=== PATIENT | female | born 1985 | race Caucasian/White ===

== ENCOUNTER 2020-01-10 12:11 | Outpatient (REF) | payer OTHER, SELFPAY | END 2020-01-10 12:12 | disposition home or self-care (01) | LOC: HO.LAB 12:11 | PROVIDERS: PCP Internal Medicine; Visit Provider Internal Medicine | DX: Z20.828 Contact with and (suspected) exposure to other viral communicable diseases (principal) | CPT/HCPCS: C9803; U0003 ==

== ENCOUNTER 2020-02-03 07:56 | Outpatient (REF) | payer OTHER, SELFPAY | END 2020-02-03 07:57 | disposition home or self-care (01) | LOC: HO.LAB 07:56 | PROVIDERS: Visit Provider Internal Medicine | DX: Z20.828 Contact with and (suspected) exposure to other viral communicable diseases (principal) | CPT/HCPCS: C9803; U0003 ==

== ENCOUNTER 2020-02-12 13:00 | Outpatient (RCR) | payer OTHER, SELFPAY | END 2020-11-03 08:14 | disposition home or self-care (01) | LOC: HO.PT 13:00 | PROVIDERS: PCP Internal Medicine; Visit Provider Physician Assistant | DX: M54.5 Low back pain (principal) | CPT/HCPCS: 97110; 97112; 97116; 97140; 97161 ==

== ENCOUNTER 2020-02-17 08:24 | Outpatient (REF) | payer OTHER, SELFPAY | END 2020-02-17 08:25 | disposition home or self-care (01) | LOC: HO.LAB 08:24 | PROVIDERS: PCP Internal Medicine; Visit Provider Internal Medicine | DX: Z20.828 Contact with and (suspected) exposure to other viral communicable diseases (principal) | CPT/HCPCS: C9803; U0003 ==

== ENCOUNTER → 2020-03-10 11:21 | Outpatient (BNVA) | payer OTHER, SELFPAY | PROVIDERS: PCP Internal Medicine; Visit Provider Advanced Practice Midwife | DX: Z76.89 Persons encountering health services in other specified circumstances (principal) ==

== ENCOUNTER 2020-04-02 07:39 | Outpatient (REF) | payer OTHER, SELFPAY | END 2020-04-02 07:40 | disposition home or self-care (01) | LOC: HO.LAB 07:39 | PROVIDERS: Visit Provider Internal Medicine | DX: Z20.822 Contact with and (suspected) exposure to COVID-19 (principal) | CPT/HCPCS: 36415; C9803; U0003; U0005 ==

== ENCOUNTER 2020-05-22 14:22 | Emergency (ER) | payer OTHER, SELFPAY ==
--- NOTE | ~2020-05-22 | XR_ITS ---
EXAMINATION: XR ANKLE, RIGHT XR FOOT, RIGHT CLINICAL INFORMATION: Trauma, pain COMPARISON: Right ankle radiographs 11/23/2017 TECHNIQUE: 2 views right ankle, 2 views right foot, and a lateral view of the combined right ankle and foot are obtained for a total of 5 views. FINDINGS: The malleoli are intact and the ankle mortise is symmetric. There is no fracture or dislocation or visible ankle capsular effusion. The retrocalcaneal recess is preserved. The subtalar joint appears normal. The midfoot and forefoot show no fracture or dislocation or arthropathy. XR/XR foot RT 2V IMPRESSION: No fracture or dislocation.
--- NOTE | ~2020-05-22 | XR_ITS ---
EXAMINATION: XR ANKLE, RIGHT XR FOOT, RIGHT CLINICAL INFORMATION: Trauma, pain COMPARISON: Right ankle radiographs 11/23/2017 TECHNIQUE: 2 views right ankle, 2 views right foot, and a lateral view of the combined right ankle and foot are obtained for a total of 5 views. FINDINGS: The malleoli are intact and the ankle mortise is symmetric. There is no fracture or dislocation or visible ankle capsular effusion. The retrocalcaneal recess is preserved. The subtalar joint appears normal. The midfoot and forefoot show no fracture or dislocation or arthropathy. XR/XR ankle RT 2V IMPRESSION: No fracture or dislocation.
[2020-05-22 15:00] VITALS: BP 114/66; PULSE 75; RESP 18; TEMP 36.7; O2SAT 99; BMI 37.5
[2020-05-22 16:00] VITALS: BP 118/70; PULSE 70; RESP 20; TEMP 36.4; O2SAT 98
--- NOTE | 2020-05-22 16:09 | ED.LOWEXIN ---
HPI - Extremity Injury (Lower) General Chief Complaint: Extremity Injury, Lower Stated Complaint: rt ankle injury Time Seen by Provider: 05/22/20 16:09 Source: patient Mode of arrival: ambulatory History of Present Illness HPI Narrative: 34-year-old female with a past medical history of dysmenorrhea, presenting to the ED complaining of right ankle/foot pain s/p twisting injury this afternoon while at work. Reports was moving chairs when twisted ankle, now with notable swelling and pain with walking/movement. Denies head trauma or LOC. Denies numbness, tingling, weakness, or injury to other area MD complaint: ankle injury and foot injury Related Data Home Medications Medication Instructions Recorded Confirmed 103-folic acid 400 1 tab PO DAILY 12/04/19 03/10/20 mcg-omeg3 32.5 mg-dha-fish oil chew tablet Previous Rx's Medication Instructions Recorded ibuprofen 600 mg tablet 600 mg PO Q6H PRN #60 tab 12/04/19 valacyclovir 500 mg tablet 500 mg PO BID #30 tab 12/04/19 norethindrone (contraceptive) 0.35 0.35 mg PO DAILY #28 tab 03/10/20 mg tablet acetaminophen [Tylenol Extra 500 mg PO Q6H PRN #20 tab 05/22/20 Strength] naproxen 500 mg PO BID PRN 10 Days #20 tab 05/22/20 Allergies Allergy/AdvReac Type Severity Reaction Status Date / Time No Known Allergies Allergy Mild NOT Verified 03/10/20 11:22 APPLICABLE Review of Systems Review of Systems: Constitutional: No Fever, No Chills Musculoskeletal: + joint pain, No Myalgias, +Joint Swelling Skin: No Skin Lesions, No rash Neuro: No Weakness, No Numbness, No Paresthesias, no head trauma or LOC Yes all other systems are reviewed and are negative PMFSH Past Medical History Attestation statement: The following information was validated with the patient. Medical History Dysmenorrhea History of depression Hx of herpes simplex infection Hx of thyroid nodule Tobacco use Family History Family History Father History of colon cancer Mother Hx of diabetes mellitus Hx of cardiovascular disorder Hx of sleep apnea Brother Hx of diabetes mellitus Hx of sleep apnea Maternal Grandmother Hx of diabetes mellitus Social History Social History Alcohol intake: current Alcohol intake frequency: a few times a month Smoking Status: Current every day smoker Tobacco Type: Cigarette Cigarettes Per Day: 2 Advance Directives: No Advance Directives Information Provided: Yes Physical Exam Vital Signs: Vital Signs: Last Vital Signs Temp 97.6 F 05/22/20 16:00 Pulse 70 05/22/20 16:00 Resp 20 05/22/20 16:00 BP 118/70 05/22/20 16:00 Pulse Ox 98 05/22/20 16:00 Body Mass Index 37.5 Const: General: cooperative, healthy appearing and no acute distress Orientation/consciousness: patient oriented x3 Limitations: no limitations HENMT: Head: Yes normal to inspection Ears: hearing grossly normal bilaterally General nose exam: Normal external nose present Face and sinus: Yes normal facial exam Eyes: General: appearance normal, both eyes and all related structures EOM: EOMs intact bilaterally Neck: Neck: Yes normal visual inspection and Yes no meningeal signs Resp: Effort & Inspection: normal respiratory effort Cardio: Peripheral pulses: dorsalis pedis present Skin: Rashes: no rashes Wounds: no wounds Neuro: General: patient oriented x3, tone normal and no meningeal signs Extrem: Other: Right ankle notable swelling and tenderness to palpation. Decreased ROM secondary to pain. Right foot with mild swelling and tenderness to palpation. Neurovascularly intact. Range of motion intact to toes. Course Course Course Narrative: -right foot/ankle x-rays without fracture or dislocations>> patient placed in Aircast to follow-up with PCP MDM - Extremity Injury (Lower) MDM Narrative Medical decision making narrative: Concern for sprain/strain vs fracture Plan: X-rays Discharge Plan Discharge Clinical Impression: Ankle sprain Qualifiers: Encounter type: initial encounter Involved ligament of ankle: unspecified ligament Laterality: right Qualified Code(s): S93.401A - Sprain of unspecified ligament of right ankle, initial encounter Patient Disposition: Home, Self-Care Instructions: Ankle Sprain (ED) Additional Instructions: Your x-rays did not show any acute fracture/dislocation. Wear Aircast at home as needed for stability/comfort Ice, elevate, rest, stay off her feet as much as possible, bear weight as tolerated Follow-up with her primary care doctor Prescriptions: New acetaminophen [Tylenol Extra Strength] 500 mg tablet 500 mg PO Q6H PRN (Reason: pain or fever) Qty: 20 RF: 0 naproxen 500 mg tablet 500 mg PO BID PRN (Reason: pain) 10 Days Qty: 20 RF: 0 No Action with DHA-Folic Acid 400-32.5 mcg-mg tablet,chewable 1 tab PO DAILY RF: 0 valacyclovir [Valtrex] 500 mg tablet 500 mg PO BID Qty: 30 RF: 1 ibuprofen 600 mg tablet 600 mg PO Q6H PRN (Reason: pain) Qty: 60 RF: 1 norethindrone (contraceptive) 0.35 mg tablet 0.35 mg PO DAILY Qty: 28 RF: 9 Referrals: Physician,Unknown [Primary Care Provider] - 1 week
== END 2020-05-22 16:20 | disposition home or self-care (01) ==
PROVIDERS: Emergency Provider Emergency Medicine Emergency Medical Services
DX: S93.401A Sprain of unspecified ligament of right ankle, initial encounter (principal); M25.571 Pain in right ankle and joints of right foot; X50.1XXA Overexertion from prolonged static or awkward postures, initial encounter; Y93.01 Activity, walking, marching and hiking; Y92.9 Unspecified place or not applicable; Y99.0 Civilian activity done for income or pay; F17.210 Nicotine dependence, cigarettes, uncomplicated; Z71.6 Tobacco abuse counseling; Z79.899 Other long term (current) drug therapy
CPT/HCPCS: 73600; 73620; 99283

== ENCOUNTER 2021-01-18 15:14 | Outpatient (REF) | payer OTHER, SELFPAY ==
[2021-01-19 05:32] LABS: CT PCR NOT DETECTED (Not Detect.); NG PCR NOT DETECTED (Not Detect.)
== END 2021-01-18 15:15 | disposition home or self-care (01) ==
LOC: HO.LAB 15:14
PROVIDERS: Visit Provider Advanced Practice Midwife
DX: Z01.419 Encounter for gynecological examination (general) (routine) without abnormal findings (principal); Z20.2 Contact with and (suspected) exposure to infections with a predominantly sexual mode of transmission; F17.210 Nicotine dependence, cigarettes, uncomplicated
CPT/HCPCS: 87491; 87591

== ENCOUNTER → 2021-02-03 15:06 | Outpatient (BNVA) | payer OTHER, SELFPAY | PROVIDERS: Visit Provider Advanced Practice Midwife | DX: Z30.430 Encounter for insertion of intrauterine contraceptive device (principal) | CPT/HCPCS: 58300; 81025 ==

== ENCOUNTER → 2021-03-15 13:42 | Outpatient (BNVA) | payer OTHER, SELFPAY | PROVIDERS: Visit Provider Advanced Practice Midwife | DX: Z30.431 Encounter for routine checking of intrauterine contraceptive device (principal) | CPT/HCPCS: 99212 ==

== ENCOUNTER 2022-06-24 13:43 | Outpatient (REF) | payer OTHER, MEDICAID, SELFPAY ==
[2022-06-30 07:24] LABS: HPV mRNA E6/E7 rflx Not Detected (Not Detected)
== END 2022-06-24 13:44 | disposition home or self-care (01) ==
LOC: HO.LNP 13:43
PROVIDERS: Visit Provider Advanced Practice Midwife
DX: Z01.411 Encounter for gynecological examination (general) (routine) with abnormal findings (principal); R10.2 Pelvic and perineal pain; B00.9 Herpesviral infection, unspecified; Z80.3 Family history of malignant neoplasm of breast
CPT/HCPCS: 87624; 88142

== ENCOUNTER 2022-08-01 15:31 | Outpatient (REF) | payer OTHER, MEDICAID, SELFPAY ==
--- NOTE | ~2022-08-01 | MM_ITS ---
EXAMINATION: MM SCREENING DIGITAL BREAST TOMOSYNTHESIS, BILATERAL CLINICAL INFORMATION: Screening. Asymptomatic. No prior mammography. Age 36. Family history breast cancer, mother. The lifetime risk of breast cancer based on the Tyrer-Cuzick Model is 16%. COMPARISON: None (current study represents initial baseline exam). TECHNIQUE: Digital breast tomosynthesis is performed in both the craniocaudal and mediolateral oblique views along with computer-aided detection (CAD). Synthesized 2D images are generated from the tomosynthesis. FINDINGS: There are scattered areas of fibroglandular density (ACR BI-RADS breast composition Category b). There are no significant masses, abnormal calcifications, or other abnormalities. No architectural abnormality. The axilla and skin contours are unremarkable. MM/MM tomosynthesis screening BI IMPRESSION: No mammographic evidence of malignancy. ASSESSMENT: BI-RADS 1: Negative RECOMMENDATION: Routine annual mammography screening, by age 40, or earlier as clinical risk factors warrant. This patient's information was entered into a reminder system with a target due date for their next mammogram.
== END 2022-08-01 15:32 | disposition home or self-care (01) ==
LOC: HO.MAMMO 15:31
PROVIDERS: Visit Provider Advanced Practice Midwife
DX: Z12.31 Encounter for screening mammogram for malignant neoplasm of breast (principal); Z80.3 Family history of malignant neoplasm of breast
CPT/HCPCS: 77063; 77067

== ENCOUNTER 2023-06-30 14:18 | Outpatient (AMB) | payer OTHER, MEDICAID, SELFPAY ==
--- NOTE | 2023-06-30 14:36 | MHC.OFFVIS ---
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 Doing well with no concerns. She tries to eat healthy and stays active with exercise. No regular bleeding with her Mirena IUD. Currently is sexually active, same monogamous partner. She denies vaginal itching and irritation. STI screening offered; she declines. Denies family history of ovarian or colon cancer. FH breast cancer-mom age 60 at onset diagnoses. Last pap smear 2022, negative. [facility] Medical History Tobacco use Dysmenorrhea History of depression Hx of herpes simplex infection Hx of thyroid nodule Family History Father History of colon cancer Mother Hx of diabetes mellitus Hx of cardiovascular disorder Hx of sleep apnea Breast cancer, Onset Age: 60 Kidney transplant status Brother Hx of diabetes mellitus Hx of sleep apnea Maternal Grandmother Hx of diabetes mellitus Social History Household Members: Spouse Household Members Other:: lives wtih spouse and her 2 children Alcohol intake: current Alcohol intake frequency: a few times a month Patient Tobacco Use Status: Former Tobacco user Cigarettes Per Day: 0 Current occupational status: employed 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 Reproductive History Menstrual Age of Menarche: 14 Duration of menses: 3-5 days control method: progestin IUCD Total pregnancies: 5 Full term: 2 Number of Living Children: 2 Ab spontaneous: 3 Date of last pap smear: 06/24/22 (negative) History of abnormal pap smear: Yes (2004 LG) Date of Mammogram: 08/01/22 Review of Systems Const All systems reviewed & are unremarkable except as noted in HPI and below Reports as per HPI Eyes Reports no additional complaints ENT Reports no additional complaints Card Reports no additional complaints Resp Reports no additional complaints GI Reports as per HPI and Reports no additional complaints Reports as per HPI Musc Reports no additional complaints Skin/Breast Reports as per HPI Neuro Reports no additional complaints Psych Reports no additional complaints Endo Reports no additional complaints Axel/Lymph Reports no additional complaints Aller/Immun Reports no additional complaints Physical Exam Vital Signs: Last Vital Signs BP 112/68 06/30/23 14:37 BMI result Body Mass Index 37.0 Const General: cooperative, healthy appearing, no acute distress, well developed and alert Orientation/consciousness: patient oriented x3 HEENT Head: Yes normal to inspection Eyes General: appearance normal, both eyes and all related structures Neck Neck: Yes normal visual inspection Thyroid: Thyroid normal Chest Chest palpation & inspection: normal inspection of the chest and other (no puckering, dimpling, peau de orange, retraction, discharge, masses) Breast/axilla inspection: normal inspection of the breasts Breast/axilla palpation: normal palpation of the breasts Resp Effort & Inspection: normal respiratory effort GI Inspection: Yes normal to inspection Palpation (GI): Soft to palpation Rectal Exam - Female: deferred General: Yes bladder normal to palpation External Female Exam: normal external appearance and normal appearance of the urethra Speculum Exam - Vagina: normal appearance of the vagina, normal palpation and normal vaginal discharge Speculum Exam - Cervix: normal appearance of the cervix, normal palpation and Other cervical findings present (IUD strings present at the os) Bimanual exam- vagina & uterus: normal bimanual exam, normal palpation, uterine size normal, bladder normal to palpation, normal palpation and non-tender Bimanual Exam- Adnexa, other: no masses Skin General skin exam: no rashes or lesions noted Rashes: no rashes Neuro General: patient oriented x3 Cognition (Neuro): normal cognition Extrem General: Yes normal to inspection Psych Attitude: cooperative Thought process: Normal thought process present Assessment & Plan Assessment & Plan (1) Encounter for well woman exam with routine gynecological exam: Code(s): Z01.419 - Encounter for gynecological examination (general) (routine) without abnormal findings Plan Discussed: Current recommendations for pap smears per ASCCP guidelines. Breast awareness and periodic breast exams. Maintain a healthy lifestyle including a well balanced diet and routine exercise. Patient verbalizes understanding and agrees to the plan of care. She was given opportunity to ask questions and all questions were answered to the best of my ability. RTO in one year for annual physical ther examination. This note is constructed using voice recognition software. While every effort has been made to ensure accuracy, stock preparation operator errors may have been included. Coding Level of Care Code Est Pt Prev Care 18-39y(73672) Diagnoses Encounter for well woman exam with routine gynecological exam Z01.419
[2023-06-30 14:37] VITALS: BP 112/68; BMI 37.0
== END 2023-06-30 15:02 | disposition home or self-care (01) ==
PROVIDERS: Visit Provider Advanced Practice Midwife
DX: Z01.419 Encounter for gynecological examination (general) (routine) without abnormal findings (principal)
CPT/HCPCS: 99395

== ENCOUNTER → 2023-06-30 14:18 | Outpatient (BNVA) | payer OTHER, MEDICAID, SELFPAY | PROVIDERS: Visit Provider Advanced Practice Midwife ==

== ENCOUNTER 2024-07-09 14:16 | Outpatient (AMB) | payer OTHER, MEDICAID, SELFPAY ==
--- NOTE | 2024-07-09 14:22 | MHC.OFFVIS ---
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 Doing well with warranty coordinator concerns: right lower pelvic pain, intermittently x a few months. History of constipation. Currently is sexually active. She denies vaginal itching or irritation. She tries to eat healthy, loose weight w/dieting, and stays active with exercise. Denies family history of ovarian cancer. Family history of breast cancer-mother age 60. FH colon cancer-father. Last pap smear 2022, negative. [facility] Medical History (Updated 07/09/24 @ 14:59 by Areli Kahn CNM) IUD (intrauterine device) in place Pelvic pain Tobacco use Dysmenorrhea History of depression Hx of herpes simplex infection Hx of thyroid nodule Family History Father History of colon cancer Mother Hx of diabetes mellitus Hx of cardiovascular disorder Hx of sleep apnea Breast cancer, Onset Age: 60 Kidney transplant status Brother Hx of diabetes mellitus Hx of sleep apnea Maternal Grandmother Hx of diabetes mellitus Social History (Updated 07/09/24 @ 14:33 by SHAHLA Kumar) Household Members: Spouse Household Members Other:: lives wtih spouse and her 2 children Alcohol intake: former Patient Tobacco Use Status: Former Tobacco user Cigarettes Per Day: 0 Current occupational status: employed 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 Reproductive History Menstrual Age of Menarche: 14 control method: progestin IUCD (Mirena 02/03/21) Total pregnancies: 5 Full term: 2 Number of Living Children: 2 Ab spontaneous: 3 Date of last pap smear: 06/24/22 (neg pap and hpv) History of abnormal pap smear: Yes (2004 lg) Review of Systems Const All systems reviewed & are unremarkable except as noted in HPI and below Reports as per HPI Eyes Reports no additional complaints ENT Reports no additional complaints Card Reports no additional complaints Resp Reports no additional complaints GI Reports as per HPI and Reports no additional complaints Reports as per HPI Musc Reports no additional complaints Skin/Breast Reports as per HPI Neuro Reports no additional complaints Psych Reports no additional complaints Endo Reports no additional complaints Axel/Lymph Reports no additional complaints Aller/Immun Reports no additional complaints Physical Exam Vital Signs: Last Vital Signs BP 112/70 07/09/24 14:24 BMI result Body Mass Index 38.4 Const General: cooperative, healthy appearing, no acute distress, well developed and alert Orientation/consciousness: patient oriented x3 HEENT Head: Yes normal to inspection Eyes General: appearance normal, both eyes and all related structures Neck Neck: Yes normal visual inspection Thyroid: Thyroid normal Chest Chest palpation & inspection: normal inspection of the chest and other (no puckering, dimpling, peau de orange, retraction, discharge, masses) Breast/axilla inspection: normal inspection of the breasts Breast/axilla palpation: normal palpation of the breasts Resp Effort & Inspection: normal respiratory effort GI Inspection: Yes normal to inspection Palpation (GI): Soft to palpation Rectal Exam - Female: deferred General: Yes bladder normal to palpation External Female Exam: normal external appearance and normal appearance of the urethra Speculum Exam - Vagina: normal appearance of the vagina, normal palpation and normal vaginal discharge Speculum Exam - Cervix: normal appearance of the cervix, normal palpation and Other cervical findings present (IUD strings at the os) Bimanual exam- vagina & uterus: normal bimanual exam, normal palpation, uterine size normal, bladder normal to palpation, normal palpation and non-tender Bimanual Exam- Adnexa, other: no masses and tender (slightly) on the right Skin General skin exam: no rashes or lesions noted Rashes: no rashes Neuro General: patient oriented x3 Cognition (Neuro): normal cognition Extrem General: Yes normal to inspection Psych Attitude: cooperative Thought process: Normal thought process present Results AMB Urinalysis, Automated UA Leukoctes 2 Yuniel/uL Last Edit by SHAHLA Kumar on 07/09/24 14:39 UA Nitrite Negative Last Edit by SHAHLA Kumar on 07/09/24 14:39 UA Urobilinogen 0 mg/dL Last Edit by SHAHLA Kumar on 07/09/24 14:39 UA Protein 0.5 mg/dL Last Edit by SHAHLA Kumar on 07/09/24 14:39 UA pH 7.0 Last Edit by Valentine Aviva Matos Smita on 07/09/24 14:39 UA Blood 0 Kash/uL Last Edit by Valentine Chicas Shawna Smita on 07/09/24 14:39 UA Specific [place] 1.015 Last Edit by Valentine Aviva Matos [facility] on 07/09/24 14:39 UA Ketone Positive Last Edit by Valentine Matos Smita on 07/09/24 14:39 trace Valentine Aviva Matos 07/09/24 14:39 UA Bilirubin 0 mg/dL Last Edit by Valentineumair Matos Smita on 07/09/24 14:39 UA Glucose 0 mg/dL Last Edit by Valentineumair Matos Smita on 07/09/24 14:39 Results Reviewed Results Reviewed: Laboratory Last Values Urine pH (Auto) 7.0 07/09/24 14:38 Specific [place] (Auto) 1.015 07/09/24 14:38 Urine Protein (Auto) 0.5 mg/dL 07/09/24 14:38 Glucose (UA)(Auto) 0 mg/dL 07/09/24 14:38 Urine Ketones (Auto) Positive 07/09/24 14:38 Urine Blood (Auto) 0 Kash/uL 07/09/24 14:38 Urine Nitrite (Auto) Negative 07/09/24 14:38 Urine Bilirubin (Auto) 0 mg/dL 07/09/24 14:38 Urine Urobilinogen (Auto) 0 mg/dL 07/09/24 14:38 Leukocyte Esterase (Auto) 2 Yuniel/uL 07/09/24 14:38 Assessment & Plan Assessment & Plan (1) Encounter for well woman exam with routine gynecological exam: Code(s): Z01.419 - Encounter for gynecological examination (general) (routine) without abnormal findings Plan: Discussed: Current recommendations for pap smears per ASCCP guidelines. Breast awareness and periodic breast exams. Maintain a healthy lifestyle including a well balanced diet and routine exercise. Encouraged fiber in her diet and fluids increased to prevent constipation. Patient verbalizes understanding and agrees to the plan of care. She was given opportunity to ask questions and all questions were answered to the best of my ability. RTO in one year for annual warranty coordinator examination. This note is constructed using voice recognition software. While every effort has been made to ensure accuracy, pond worker errors may have been included. (2) Pelvic pain: Code(s): R10.2 - Pelvic and perineal pain Category: Medical Plan: Plan workup for pelvic pain to include pelvic ultrasound and cervical cultures. Follow up in person for results. Use of [id number] medications p.r.n. for discomfort. If any severe or increasing severity of pain to report to the emergency room for immediate care evaluation. The patient expressed understanding and agreement with the plan of care. All of her questions and concerns were addressed to the best of my ability. Total time I personally spent on visit and management today: ?20 minutes. Time spent included review of pertinent office notes in the electronic health record; review of laboratory and imaging results; review of personal family medical history; performing physical exam; discussing diagnosis and plan of care with the patient; documenting the encounter in the EMR. (3) IUD surveillance: Code(s): Z30.431 - Encounter for routine checking of intrauterine contraceptive device Category: Medical Plan Pelvic ultrasound to check position. Orders: Orders AMB Urinalysis Automated Today R10.2 - Pelvic and perineal pain Bacterial Vaginosis Panel Today R10.2 - Pelvic and perineal pain, Z20.2 - Contact with and (suspected) exposure to infections with a predominantly sexual mode of transmission CT NG by PCR Today R10.2 - Pelvic and perineal pain, Z20.2 - Contact with and (suspected) exposure to infections with a predominantly sexual mode of transmission Urine Culture Today R10.2 - Pelvic and perineal pain US pelvic and transvaginal Today R10.2 - Pelvic and perineal pain, Z30.431 - Encounter for routine checking of intrauterine contraceptive device Coding Level of Care Code Est Pt Prev Care 18-39y(02683) Diagnoses Encounter for well woman exam with routine gynecological exam Z01.419 Pelvic pain R10.2 IUD surveillance Z30.431
[2024-07-09 14:24] VITALS: BP 112/70; BMI 38.4
--- OUTSIDE RECORDS SUMMARY | 2024-07-09 15:29 | XMS_ITS | Clinical Summary ---
Author Organization [facility] Address [address] [place] [address] Phone Care Team Providers Care Bottle Carrier Name Role Phone Unavailable Primary Care Provider Unavailabl e Immunizations Immunization Administration Dates Next Due DTP 06/26/1997, 7,12/27/1996,03/29,08/26/1989 Hep B, ped/adol 11/26/1997 Hib (PRP-T) 09/26/1989 IPV 02/26/1997, 7,03/29/1991,08/26 MMR 11/26/1997 Measles 01/27/1989 Meningococcal Conj (Menactra) MCV4P 07/09/2004 Mumps 12/28/1988 Rubella 06/27/1988 Td (adult) (Tenivac), 5 Lf t etanus toxoid, PF, adsorbed 06/24/1998 Family History Relation Name Status Comments Father Alive Father: Alive a nd well Mother Alive Mother: asthma, diabetes, elevated Cholesterol, Other Family history of Asthma Sister Alive Sister: Alive a nd well Social History Tobacco Use Types Packs/Day Years Used Date Smoking Tobacco: Never Assessed Comments Unknown Sex and Gender Information Value Date Recorded Sex Assigned at Not on file Legal Sex Female 4:15 PM EDT Gender Identity Not on file Sexual Orientation Not on file Plan of Treatment Health Maintenance Due Date Last Done Comments Hepatitis B Vaccines (2 of 3 - 3-dose series) 12/24/1997 11/26/1997 Varicella Vaccines (1 of 2 - 13+ 2-dose series) 10/16/1999 DTaP,Tdap,and Td Vaccines (7 - Tdap) 06/24/2008 06/24/1998, 06/26/1997, 02/26/1997, Additional history exists Influenza Vaccines (#1) 2023 COVID-19 Vaccine ( season) 2023 HIB Vaccines Completed 09/26/1989 IPV Vaccines Completed 02/26/1997, 11/29, 03/29/1991, Additional history exists MMR Vaccines Completed 11/26/1997 Meningococcal Vaccine Completed 07/09/2004 HPV Vaccines Aged Out No longer eligi ble based on patient's age to complete this topic Hepatitis A Vaccines Aged Out No long er eligible based on patient's age to complete this topic Men B Vaccine Aged Out No longer elig ible based on patient's age to complete this topic Pneumococcal Vaccine Aged Out No long er eligible based on patient's age to complete this topic
--- OUTSIDE RECORDS SUMMARY | 2024-07-09 15:29 | XMS_ITS | Encounter Summary ---
Author Organization [facility] Address [address] [place] [address] Phone Care Team Providers Care Larriman Helper Name Role Phone Leatha Hutchinson MD Primary Care Provider [phone] Encounter Details Date Type Department Care Team (Late st Contact Info) Description 10/13/2016 Conversion Encounter [facility] [place] [address] [place] [address] Social History Tobacco Use Types Packs/Day Years Used Date Smoking Tobacco: Never Assessed Comments Unknown Sex and Gender Information Value Date Recorded Sex Assigned at Not on file Legal Sex Female 4:15 PM EDT Gender Identity Not on file Sexual Orientation Not on file documented as of this encounter Plan of Treatment Not on file documented as of this encounter Visit Diagnoses Not on filedocumented in this encounter Care Teams Larriman Helper Relationship Specialty Start Date End Date Leatha Hutchinson MD [address] [place] [address] PCP - General 10/07/16 04/13/22 documented as of this encounter
--- OUTSIDE RECORDS SUMMARY | 2024-07-09 15:29 | XMS_ITS | Clinical Summary ---
Author Organization [facility] Address [address] [place] [address] Care Team Providers Care Senior Mechanical Project Manager Name Role Phone Unavailable Primary Care Provider Unavailabl e Source Comments PLEASE NOTE, if this patient is a minor, it may be UNLAWFUL to discuss sensitive information that is contained in these records (such as FAMILY PLANNING, MENTAL HEALTH or SUBSTANCE ABUSE) with the minor patient's parent or other person without the patient's specific authorization.[facility] Immunizations Immunization Administration Dates Next Due Flu, Preservative Free 01/01/2021 HEP B, PED/ADOL 11/26/1997 MMR (MMR II/Priorix) 08/06/2020,11/26/1997 Measles, Live 01/27/1989 Moderna COVID-19 (Spikevax), Mrna, Lnp-s, Pf, 50 Mcg/0.5 Ml, 12yr+ 01/28/2023 Moderna COVID-19 Vaccine, re d cap blue label, 12+ Primary Series 01/01/2021,08/26/2020,07/29/2020 Mumps, Live 12/28/1988 Rubella, Live 06/27/1988 TDAP 04/23/2019,10/11/2014,01/31/2008 Social History Tobacco Use Types Packs/Day Years Used Date Smoking Tobacco: Never Assessed Social Connections Answer Date Recorded Connectedness 0 11/09/2023 Financial Resource Strain Answer Date R ecorded Financial Resource Strain 0 2021 Stress Answer Date Recorded Stress 0 03/01/2021 Physical Activity Answer Date Recorded Physical Activity 0 03/01/2021 Food Insecurity Answer Date Recorded Food 0 11/23/2023 Transportation Needs Answer Date Record ed Transportation 0 03/01/2021 Housing Stability Answer Date Recorded Housing 0 03/01/2021 Safety and Environment Answer Date Bunny rded Safety 0 03/01/2021 Utilities Answer Date Recorded Utilities 0 03/01/2021 Employment Answer Date Recorded Stress 0 11/09/2023 Comments Unknown Sex and Gender Information Value Date Recorded Sex Assigned at Not on file Legal Sex Female 1:40 PM PDT Gender Identity Not on file Sexual Orientation Not on file Plan of Treatment Health Maintenance Due Date Last Done Comments Anxiety Screening 1985 HPV Screening 1986 Hepatitis C Screening 1986 Pap + HPV 1986 Tobacco Screening 1986 Imm-Hepatitis B (2 of 3 - 3- dose series) 12/24/1997 11/26/1997 HIV Screening 2001 Relationship Safety Screening/Counseling 2001 Hypertension Screening (#1) 2004 Cervical Cancer Screening 10/16/2007 Pap Smear 10/16/2007 [id number] ( season) 2023 01/28/2023, 02/10/2022, 01/01/2021, Additional history exists Imm-Influenza (#1) 2023 01/01/2021, 1 , 12/11/2012, Additional history exists Alcohol and Drug Screen 02/28/2024 Depression Annual Screen 02/28/2024 Diabetes Screening 03/28/2024 03/28/2021 Imm-DTaP/Tdap/Td (10 - Td or Tdap) 04/23/2029 04/23/2019, 10/11/2014, 01/31/2008, Additional history exists Cervical Ablation/Cold-Knife Conization Discontinued Cervical Cryotherapy Discontinued Colposcopy Discontinued Endometrial Biopsy Discontinued Excision/Leep Discontinued HPV Genotyping Discontinued Vaginal Pap Discontinued Vulvoscopy Discontinued Insurance [employer] Member Subscriber Plan / Payer (Ef fective 2022-Present) Name:Santosh Lott Relation to Subscriber:Self Name:Santosh Lott Payer ID:[id number] Group ID:Not on file Type:[place]ren Address: [address] MEDICAID
== END 2024-07-09 15:00 | disposition home or self-care (01) ==
LOC: HO.HWS 14:16
PROVIDERS: Visit Provider Advanced Practice Midwife
DX: Z01.419 Encounter for gynecological examination (general) (routine) without abnormal findings (principal); R10.2 Pelvic and perineal pain; Z30.431 Encounter for routine checking of intrauterine contraceptive device
CPT/HCPCS: 99395; 99459

== ENCOUNTER 2024-07-09 14:16 | Outpatient (REF) | payer OTHER, MEDICAID, SELFPAY ==
--- OUTSIDE RECORDS SUMMARY | 2024-07-09 15:56 | XMS_ITS | Encounter Summary ---
Author Organization [facility] Address [address] [place] [address] Phone Care Team Providers Care Virtual Customer Assistant Name Role Phone Leatha Hutchinson MD Primary Care Provider Encounter Details Date Type Department Care Team (Late st Contact Info) Description 10/13/2016 Conversion Encounter [facility] [place] [address] [place] [address] Social History Tobacco Use Types Packs/Day Years [...] on filedocumented in this encounter Care Teams Virtual Customer Assistant Relationship Specialty Start Date End Date Leatha Hutchinson MD [address] [place] [address] PCP - General 10/07/16 04/13/22 documented as of this encounter
--- OUTSIDE RECORDS SUMMARY | 2024-07-09 15:56 | XMS_ITS | Clinical Summary ---
Author Organization [facility] Address [address] [place] [address] Care Team Providers Care Table Attendant Name Role Phone Unavailable Primary Care Provider [...] Cervical Cancer Screening 10/16/2007 Pap Smear 10/16/2007 [id number] ( season) 2023 01/28/2023, 02/10/2022, 01/01/2021, Additional [...] Discontinued Vaginal Pap Discontinued Vulvoscopy Discontinued Insurance [facility] Member Subscriber Plan / Payer (Ef fective 2022-Present) Name:Santosh Lott Relation to Subscriber:Self Name:Santosh Lott Payer ID:[id number] Group ID:Not on file Type:[place]ren Address: [address] MEDICAID
--- OUTSIDE RECORDS SUMMARY | 2024-07-09 15:56 | XMS_ITS | Clinical Summary ---
Author Organization [facility] Address [address] [place] [address] Phone Care Team Providers Care Hr Coordinator Name Role Phone Unavailable Primary Care Provider [...]
[2024-07-10 13:36] LABS: Bacterial Vaginosis PCR POSITIVE (Negative); Candida Group PCR NOT DETECTED (Not Detect); Candida glab krusei PCR NOT DETECTED (Not Detect); Trichomonas vaginalis PCR NOT DETECTED (Not Detect)
[2024-07-10 14:16] LABS: CT PCR NOT DETECTED (Not Detect.); NG PCR NOT DETECTED (Not Detect.)
== END 2024-07-09 14:17 | disposition home or self-care (01) ==
LOC: HO.LAB 14:16
PROVIDERS: Visit Provider Advanced Practice Midwife
DX: Z01.419 Encounter for gynecological examination (general) (routine) without abnormal findings (principal); R10.2 Pelvic and perineal pain; Z20.2 Contact with and (suspected) exposure to infections with a predominantly sexual mode of transmission
CPT/HCPCS: 81003; 81515; 87086; 87491; 87591

== ENCOUNTER 2024-07-09 14:53 | Outpatient (REF) | payer OTHER, MEDICAID, SELFPAY ==
--- OUTSIDE RECORDS SUMMARY | 2024-07-09 15:56 | XMS_ITS | Clinical Summary ---
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 Anxiety DX:Anxiety Thyroid nodule DX:Thyroid nodul e; COMMENT: benign, partial thyroidectomy Obese DX:Obese Tobacco abuse DX:Tobacco abuse Family History Medical History Relation Name Comments Hemochromatosis Aunt 1 maternal aun t Colon cancer Father at 52 of c olon ca Other: Other Maternal Grandfather no info rmation Diabetes Maternal Grandmother alive i n her 70s, 2015 Diabetes Mother HTN, cholest, t hyroid; alive at age 58, 2015 Other: thyroid cancer Other 1 matern al first cousin Other: Other Paternal Grandfather no info rmation Other: Other Paternal Grandmother no info rmation Relation Name Status Comments Aunt 1 Aunt 2 Brother Alive ?PMH Father (Age 52) colon canc er Maternal Grandfather Maternal Grandmother Alive CVA Mother Alive DM, HTN, Triplett's palsy Other 1 Other 2 Paternal Grandfather Paternal Grandmother Sister Alive anemic, asthma Social History Tobacco Use Types Packs/Day Years Used Date Smoking Tobacco: Every Day Smokeless Tobacco: Current Alcohol Use Standard Drinks/Week Comments Yes 0 (1 standard drink = 0.6 oz pur e alcohol) Comments Unknown Sex and Gender Information Value Date Recorded Sex Assigned at Not on file Legal Sex Female 10:21 AM EST Gender Identity Not on file Sexual Orientation Not on file Obstetrics History Plan of Treatment Health Maintenance Due Date Last Done Comments Hepatitis B Vaccines (1 of 3 - 19+ 3-dose series) 2005 Cervical Cancer Screening: Pap Smear 10/16/2007 COVID-19 Vaccine ( - season) 2023 DTaP,Tdap,and Td Vaccines (3 - Td or Tdap) 10/11/2024 10/11/2014, 01/31/2008 Influenza Vaccine (Season Ended) 2024 12/11/2012, 11/22/2011, 12/31/2009, Additional history exists HIB Vaccines Aged Out No longer eligi ble based on patient's age to complete this topic HPV Vaccines Aged Out No longer eligi ble based on patient's age to complete this topic Hepatitis A Vaccines Aged Out No long er eligible based on patient's age to complete this topic IPV Vaccines Aged Out No longer eligi ble based on patient's age to complete this topic MMR Vaccines Aged Out No longer eligi ble based on patient's age to complete this topic Meningococcal ACWY Vaccine Aged Out N o longer eligible based on patient's age to complete this topic Meningococcal B Vaccine Aged Out No l onger eligible based on patient's age to complete this topic Pneumococcal Vaccine: Pediatrics (0 to 5 Years) and At-Risk Patients (6 to 64 Years) Aged Out No longer eligible based on patient's age to complete this topic RSV Immunization Patients Under 20 months Aged Out No longer eligible based on patient's age to complete this topic Varicella Vaccines Aged Out No longer eligible based on patient's age to complete this topic Care Teams Barrel Tester And Drainer Relationship Specialty Start Date End Date Name, MD Felix [address] [place], [place] PCP - General 11/28/08
== END 2024-07-09 14:54 | disposition home or self-care (01) ==
LOC: HO.LNP 14:53
PROVIDERS: Visit Provider Advanced Practice Midwife
DX: Z13.89 Encounter for screening for other disorder (principal)

== ENCOUNTER 2024-08-07 16:22 | Outpatient (REF) | payer OTHER, MEDICAID, SELFPAY ==
--- NOTE | ~2024-08-07 | US_ITS ---
EXAMINATION: US PELVIS TRANSABDOMINAL AND TRANSVAGINAL HISTORY: R10.2 - Pelvic and perineal pain COMPARISON: There are no prior studies available for comparison. TECHNIQUE: Transabdominal and endovaginal real-time 2D dunne-scale ultrasound was performed. FINDINGS: Uterus: The uterus is normal in size, measuring 10.1 x 4.8 x 6.0 cm. Myometrium has a normal echotexture. No fibroids are identified. Endometrium: The endometrial stripe measures 3 mm in thickness. An IUD is noted in appropriate position in the endometrial cavity. Right ovary: The right ovary measures 3.8 x 1.9 x 2.7 cm. The right ovary is normal in size and echotexture. Left ovary: The left ovary measures 3.3 x 2.5 x 2.7 cm. The left ovary is normal in size and echotexture. Pelvic fluid: none. US/US pelvic and transvaginal IMPRESSION: Unremarkable pelvic ultrasound. IUD in appropriate position in the endometrial cavity. Electronically signed by: Nikhil Irizarry MD 08/08/2024 07:00 AM EDT
--- OUTSIDE RECORDS SUMMARY | 2024-08-07 18:18 | XMS_ITS | Encounter Summary ---
Author Organization [facility] Address [address] [place] [address] Phone Care Team Providers Care Rn Resource Nurse Name Role Phone Leatha Hutchinson MD Primary Care Provider Encounter Details Date Type Department Care Team (Late st Contact Info) Description 10/13/2016 Conversion Encounter [facility] [place] [address] [place] [address] Social History Tobacco Use Types Packs/Day Years [...] on filedocumented in this encounter Care Teams Rn Resource Nurse Relationship Specialty Start Date End Date Leatha Hutchinson MD [address] [place] [address] PCP - General 10/07/16 04/13/22 documented as of this encounter
== END 2024-08-07 16:23 | disposition home or self-care (01) ==
LOC: HO.US 16:22
PROVIDERS: Visit Provider Advanced Practice Midwife
DX: Z30.431 Encounter for routine checking of intrauterine contraceptive device (principal); R10.2 Pelvic and perineal pain
CPT/HCPCS: 76830; 76856

== ENCOUNTER → 2024-08-07 16:23 | Outpatient (BNV) | payer OTHER, MEDICAID, SELFPAY | PROVIDERS: Visit Provider Radiology Diagnostic Radiology | DX: R10.2 Pelvic and perineal pain (principal) | CPT/HCPCS: 76830; 76856 ==

== ENCOUNTER 2024-08-21 12:19 | Outpatient (AMB) | payer OTHER, MEDICAID, SELFPAY ==
--- NOTE | 2024-08-21 12:21 | A.OFFVIS_ITS ---
Vital Signs 08/21/24 12:22 Height 5 ft 7 in Weight 245 lb BMI 38.4 Intake Visit Reasons: Ultra sound follow up Pile Driver Operator Helper: Pile Driver Operator Helper Present Allergies No Known Allergies Allergy (Mild, Verified 07/09/24 14:24) NOT APPLICABLE Is last menstrual period known: Yes HPI Comments Details: Patient is here today for a follow up pelvic ultrasound accompanied by her daughter. History of right-sided pelvic pain and constipation. She reports the pain has resolved and has no other concerns today. [facility] Medical History IUD (intrauterine device) in place Pelvic pain Tobacco use Dysmenorrhea History of depression Hx of herpes simplex infection Hx of thyroid nodule Family History Father History of colon cancer Mother Hx of diabetes mellitus Hx of cardiovascular disorder Hx of sleep apnea Breast cancer, Onset Age: 60 Kidney transplant status Brother Hx of diabetes mellitus Hx of sleep apnea Maternal Grandmother Hx of diabetes mellitus Social History Household Members: Spouse Household Members Other:: lives wtih spouse and her 2 children Alcohol intake: former Patient Tobacco Use Status: Former Tobacco user Cigarettes Per Day: 0 Current occupational status: employed 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 [employer] Female Reproductive History Menstrual Age of Menarche: 14 Review of Systems Const All systems reviewed & are unremarkable except as noted in HPI and below Endo Reports no additional complaints Physical Exam Vital Signs: BMI result Body Mass Index 38.4 Const General: cooperative, healthy appearing and no acute distress Psych Appearance: well kempt Attitude: cooperative Thought process: Normal thought process present Results Reviewed Results Reviewed: [address] [address] Ultrasound Report Signed Patient: Santosh Roca MR#: [id number] : 1985 Acct:[id number] Age/Sex: 38 / F ADM Date: 08/07/24 Loc: HO.US Attending Dr: Areli Kahn CNM Ordering Physician: Areli Kahn CNM Date of Service: 08/07/24 Procedure(s): US pelvic and transvaginal Accession Number(s): [id number] cc: Geoffrey Kahna CN~ EXAMINATION: US PELVIS TRANSABDOMINAL AND TRANSVAGINAL HISTORY: R10.2 - Pelvic and perineal pain COMPARISON: There are no prior studies available for comparison. TECHNIQUE: Transabdominal and endovaginal real-time 2D dunne-scale ultrasound was performed. FINDINGS: Uterus: The uterus is normal in size, measuring 10.1 x 4.8 x 6.0 cm. Myometrium has a normal echotexture. No fibroids are identified. Endometrium: The endometrial stripe measures 3 mm in thickness. An IUD is noted in appropriate position in the endometrial cavity. Right ovary: The right ovary measures 3.8 x 1.9 x 2.7 cm. The right ovary is normal in size and echotexture. Left ovary: The left ovary measures 3.3 x 2.5 x 2.7 cm. The left ovary is normal in size and echotexture. Pelvic fluid: none. US/US pelvic and transvaginal IMPRESSION: Unremarkable pelvic ultrasound. IUD in appropriate position in the endometrial cavity. Electronically signed by: Nikhil Irizarry MD 08/08/2024 07:00 AM EDT RP Dictated By: Nikhil Irizarry MD Signed By: <Electronically signed by Nikhil Irizarry MD in [facility]> 08/08/24 0700 DD/ 1641 TD/TT: 08/07/24 1656 Chain Maker Hand: Assessment & Plan Assessment & Plan (1) Pelvic pain: Code(s): R10.2 - Pelvic and perineal pain Category: Medical Plan: Reviewed constipation prevention measures through fiber in the diet, adequate hydration and exercise. The patient expressed understanding and agreement with the plan of care. All of her questions and concerns were addressed to the best of my ability. (2) Encounter to discuss test results: Code(s): Z71.2 - Person consulting for explanation of examination or test findings Plan Discussed: Ultrasound findings- IMPRESSION: Unremarkable pelvic ultrasound. IUD in appropriate position in the endometrial cavity. The patient expressed understanding and agreement with the plan of care. All of her questions and concerns were addressed to the best of my ability. Annual exam scheduled June 2025. This note is constructed using voice recognition software. While every effort has been made to ensure accuracy, nursing home administrator errors may have been included. Coding Level of Care Code Est Pt Level 3 (68332) Diagnoses Pelvic pain R10.2 Encounter to discuss test results Z71.2
[2024-08-21 12:22] VITALS: BMI 38.4
--- OUTSIDE RECORDS SUMMARY | 2024-08-21 14:21 | XMS_ITS | Encounter Summary ---
Author Organization [facility] Address [address] [place] [address] Phone Care Team Providers Care Riveter Helper Name Role Phone Leatha Hutchinson MD Primary Care Provider Encounter Details Date Type Department Care Team (Late st Contact Info) Description 10/13/2016 Conversion Encounter [facility] [place] [address] [place] [address] Social History Tobacco Use Types Packs/Day Years [...] on filedocumented in this encounter Care Teams Riveter Helper Relationship Specialty Start Date End Date Leatha Hutchinson MD [address] [place] [address] PCP - General 10/07/16 04/13/22 documented as of this encounter
== END 2024-08-21 13:00 | disposition home or self-care (01) ==
PROVIDERS: Visit Provider Advanced Practice Midwife
DX: R10.2 Pelvic and perineal pain (principal); Z71.2 Person consulting for explanation of examination or test findings
CPT/HCPCS: 99213